=== PATIENT | male | born 1955 | race Caucasian/White ===

== ENCOUNTER 2021-09-09 09:15 | Outpatient (REF) | payer OTHER, SELFPAY ==
--- NOTE | 2021-09-09 14:45 | MHC.AU.ANR ---
Adult Audiological Evaluation Date of Visit: 09/09/21 Reason for Appointment: Audiological evaluation due to concern for decreased hearing. Patient feels his hearing has been gradually getting worse. He notes that he often has to ask for repetition and his family notes that he doesn't hear well. 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 He notes that only in recent years has hearing protection been required on the job and for a long time he didn't use any hearing protection. He notes that he has had constant tinnitus for many years and is able to ignore it. 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, 40 years History: History: Yes Branch: [employer] Years in : 4-8 Years Medical History: Medical History: Diabetes, Tobacco Use Allergies: Penicillin Medication List: Metformin 500 mg 2x daily Otoscopy: Right Ear: Unremarkable Left Ear: Unremarkable Tympanometry: Tympanometry performed due to: To assess integrity of the middle ear system Right Ear: Hypercompliant Middle Ear System (Type Ad) Left Ear: Hypercompliant Middle Ear System (Type Ad) Hearing Evaluation: Transducer(s) Used: Insert Earphones, Bone Conduction Method: Conventional Audiometry Stimuli Used: Pure Tones Right Ear: Description of Hearing: Normal hearing from 250-1000 Hz, sloping to a mild to moderately-severe sensorineural hearing loss from 4776-8699 Hz. Left Ear: Description of Hearing: Normal hearing from 250-1000 Hz, sloping to a mild to moderately-severe sensorineural hearing loss from 8354-0539 Hz. Speech Recognition Threshold (SRT): Method Used: Monitored Live Voice Stimuli Used: Spondee Words Right Ear: 20 dBHL Left Ear: 20 dBHL Word Discrimination: Method: Recorded Lists Word Lists Used: NU-6 Right Ear: 96% at 65 dBHL Left Ear: 96% at 65 dBHL QuickSIN: 4 dB SNR loss when presented binaurally at 65 dBHL, indication mild hgpjev-tk-itvey understanding difficulties. Recommendations: Audiological re-evaluation in one year. Trial with amplification is recommended. Medical clearance from a physician is required before fitting. Hearing protection should be used when around loud noise. Hearing aid(s) will be ordered after approval is received. Based on type and degree of hearing loss, as well as patient's shared concerns, binaural amplification is recommended to help facilitate improved communication. Discussed options. He is interested in trying rechargeable hhavzlkz-gw-mjd-canal hearing aids. Diagnosis: Primary Diagnosis: H90.3 Bilateral Sensorineural Hearing Loss Secondary Diagnosis: H93.13 Tinnitus, Bilateral Services Performed: Services Performed: Comprehensive Audiological Evaluation (CPT 93677) Tympanometry (CPT 69997) Signature: Provider: Campbell Del Cid, CCC-A
--- NOTE | 2021-09-09 14:46 | MHC.AU.HAS ---
Hearing Aid Evaluation Date of Visit: 09/09/21 Historical Information: Description of Hearing: Normal hearing through 1000 Hz sloping to a mild to moderately-severe sensorineural hearing loss from 8311-1205 Hz bilaterally. Current personal amplification information, if applicable: None Summary: Based on the type and degree of Mr. Roberts's hearing loss and his shared listening needs, binaural amplification is recommended to help facilitate improved communication. Discussed hearing aid styles and technologies. Mr. Roberts is interesting in trying rechargeable BARI style hearing aids. Hearing Aid Prescription: Based on the individual?s shared listening needs, communication environments, dexterity, desire for connectivity, and personal preferences, the following prescription for amplification has been made: Right ear: Manager Diversity: Phonak Model: Audeo P70-R Battery Size: Rechargeable Color: P1 Tube Trailer Filler: Size 1 M Left ear: Left ear prescription to be same as Right Hearing Aid above: Manager Diversity: Phonak Model: Audeo P70-R Battery Size: Rechargeable Color: P1 Tube Trailer Filler: Size 1 M Plan of Care: Medical Clearance to be requested from PCP/ENT. Hearing Instrument Fitting to be scheduled when materials arrive. Hearing aids will be ordered once MD clearance is received. Primary Diagnosis: H90.3 Bilateral Sensorineural Hearing Loss Secondary Diagnosis: H93.13 Tinnitus, Bilateral Signature: Provider: Campbell Del Cid, RADHA-A
--- NOTE | 2021-09-09 14:47 | MHC.AU.MED ---
Medical Clearance for Hearing Instrumentation Date: 09/09/21 Patient Name: Siddharth Roberts Date of : 1955 Referring Provider: DANIELLE Jacobo; Young Ruiz MD We have seen your patient on 09/09/21 and have determined that they are a candidate for amplification (See accompanying report). Specifically, they would benefit from: Hearing aid use in both ears There is a statute that addresses Medical Evaluation Requirements prior to fitting a patient with a hearing aid. According to [place] statute 265 CMR:6.03(1), (a) General. Except as provided in 265 CMR 6.03(1)(b), a generator operator shall not sell a hearing aid unless the prospective user has presented to the generator operator a written statement signed by a licensed physician that states that the patient's hearing loss has been medically evaluated and the patient may be considered a candidate for a hearing aid. The medical evaluation must have taken place within the preceding six months. Please note: Due to the [place] Statute referenced above, we cannot accept a signature other than that of a licensed physician. [employer] and PA signatures cannot be accepted. I am in agreement with the above recommendation. There is no medical contraindication for hearing instrumentation. Physician Signature Date Physician Name (Printed)
== END 2021-09-09 09:16 | disposition home or self-care (01) ==
LOC: HO.SH 09:15
PROVIDERS: Visit Provider Physician Assistant Medical
DX: Z01.118 Encounter for examination of ears and hearing with other abnormal findings (principal); Z46.1 Encounter for fitting and adjustment of hearing aid; H90.3 Sensorineural hearing loss, bilateral; H93.13 Tinnitus, bilateral
CPT/HCPCS: 92557; 92567; 92591

== ENCOUNTER 2021-12-23 13:46 | Outpatient (REF) | payer OTHER, SELFPAY | END 2021-12-23 13:47 | disposition home or self-care (01) | LOC: HO.HAP 13:46 | PROVIDERS: Visit Provider Physician Assistant Medical | DX: Z46.1 Encounter for fitting and adjustment of hearing aid (principal); H90.3 Sensorineural hearing loss, bilateral; H93.13 Tinnitus, bilateral | CPT/HCPCS: V5011; V5020; V5160; V5261 ==

== ENCOUNTER 2022-01-06 11:20 | Outpatient (REF) | payer OTHER, SELFPAY | END 2022-01-06 11:21 | disposition home or self-care (01) | LOC: HO.HAP 11:20 | PROVIDERS: Visit Provider Physician Assistant Medical | DX: Z13.89 Encounter for screening for other disorder (principal) ==

== ENCOUNTER 2025-04-07 13:29 | Outpatient (AMB) | payer MEDICARE, MEDICAID, SELFPAY ==
--- NOTE | 2025-04-07 14:48 | AM.OFFWIN_ITS ---
Intake Vital Signs 04/07/25 14:49 Height 6 ft 3 in Weight 225 lb BMI 28.1 BP 132/70 Blood Pressure Location Lt brachial Position Sitting Pulse 68 Pulse Source Pulse Oximeter Temp 98.0 F Temp Source Oral Pulse Oximetry (%) 94 Oxygen Delivery Method Room Air Intake Visit Reasons: EP-lt ear growth Intake Note: pt presents with pain to left lower earlobe, states there's a painful nodule Allergies Penicillins Allergy (Unknown, Verified 04/07/25 14:51) Unknown Do you need a note to return to daycare/school/sports/work: No HPI HPI Comments History of Present Illness Details History of Present Illness - The patient is a 70-year-old male pres enting with a lump on the left earlobe. - The lump was noticed a few weeks ago a nd has been increasing in size. - The lump has become tender, causing di scomfort, especially when trying to sleep. - No fever or purulent discharge was rep orted prior to examination. - The patient experienced itchiness in t he ear. - He denies fever, chills, discharge or bleeding. Physical Exam General: Cooperative, healthy appearing, comfortable, no acute distress and well developed Orientation: Patient oriented x3 Limitations: No limitations Head: Normal to inspection Ears: Tenderness and lump noted on the left earlobe. No tragus tenderness noted. Auditory canal is clear, TM is normal. Neck: Normal visual inspection and Yes full ROM. No lymphadenopathy noted. Respiratory: Normal respiratory effort and able to speak in complete sentences. Clear to auscultation bilaterally Cardiovascular: Regular rate and rhythm. Normal S1 and S2 Skin: No rashes or lesions noted Patient was informed and verbally consented to the use of an ambient scribe for clinic note documentation during this visit. Review of Systems Const All systems reviewed & are unremarkable except as noted in HPI and below Physical Exam Vital Signs: Last Vital Signs Temp 98.0 F 04/07/25 14:49 Pulse 68 04/07/25 14:49 BP 132/70 04/07/25 14:49 Pulse Ox 94 04/07/25 14:49 Oxygen Delivery Method Room Air 04/07/25 14:49 BMI result Body Mass Index 28.1 Office Procedures I&D Drain Details: Cleaned the left earlobe with alcohol. Used an 18 gauge needle to make a puncture in the abscess. Purulent discharge and blood expressed from the area. Cleaned with normal saline and a bandaid used to cover the area. Procedure was well tolerated. No complications noted. 65493-Myeknbfe of Skin Abscess, simple All charges added?: Procedure code (CPT) selection complete Assessment & Plan Assessment & Plan (1) Abscess of earlobe: Code(s): H60.00 - Abscess of external ear, unspecified ear Qualifiers: Laterality: left Qualified Code(s): H60.02 - Abscess of left external ear Plan Most likely an abscess vs cyst Plan - warm compresses to the area - tylenol or motrin as needed - doxycycline 100 mg BID for 7 days - follow up with PCP Orders: Orders AMB Incision & Drainage Today H60.00 - Abscess of external ear, unspecified ear Medications: New doxycycline hyclate 100 mg PO BID 14 tabs 0RF Coding Level of Care Code Est Pt Level 3 (01588) Diagnoses Abscess of left earlobe H60.02 Laterality: left CPT Codes I&D Drain - Drain 1: 33531-Whbyslnw of Skin Abscess, simple ([id number])
--- OUTSIDE RECORDS SUMMARY | 2025-04-07 14:48 | XMS_ITS ---
Author Name [facility] Organization Unknown Care Team Organization Name Specialty Phone Email Start Date End Da lawrence [facility] 06/21/2022
--- OUTSIDE RECORDS SUMMARY | 2025-04-07 14:48 | XMS_ITS | Clinical Summary ---
Author Organization [facility] [address] [place] [address] [address] [place] [address] Phone Care Team Providers Care Registered Pharmacist Name Role Phone Matti Cloud Primary Care Provider [phone] Allergies Active Allergy Reactions Criticality Noted Date Comments Penicillins Low 09/03/2014 Medications blood-glucose meter (FREESTYLE LITE METER MISC) Use to check blood sugar once daily 1 Active blood sugar diagnostic (FreeStyle Lite Strips) test strip Use to check blood sugar once daily 100 strip 5 5 Active freestyle (FreeStyle Lancets) 28 gauge lancets Use to check blood sugar once daily 100 each 5 5 Active atorvastatin (LIPITOR) 20 mg tablet TAKE 1 TABLET BY MOUTH EVERY DAY 90 tablet 3 5 Active metFORMIN (GLUCOPHAGE) 500 mg tablet Take 2 tablets (1,000 mg total) by mouth 2 (two) times a day with meals. 360 tablet 3 5 Active metFORMIN (GLUCOPHAGE) 500 mg tablet TAKE 1 TABLET BY MOUTH TWICE A DAY WITH FOOD 180 tablet 3 5 03/16/20 25 Discontinu ed(Reorder ) Active Problems Problem Noted Date Diagnosed Date Open wnd of finger 06/14/2022 Microalbuminuria 01/07/2021 Type 2 diabetes mellitus wit hout complication, without long-term current use of insulin ([facility] V24, CMS/HCC V28) 12/18/2020 Episode of recurrent major d epressive disorder [place] [place] 01/02/2020 Mixed hyperlipidemia 03/10/2019 Benign prostatic hyperplasia with weak urinary s tream 11/01/2017 Right inguinal hernia 09/07/2017 Hyperopia with astigmatism and presbyopia 2014 Nuclear sclerosis 09/03/2014 Encounters Date Type Department Care Team Description 03/12/2025 12:45 PM EDT Office Visit Adult Medicine [address] [address] Matti Cloud PA Type 2 diabetes mellitus without complication, without long-term current use of insulin ([facility] V24, [facility] V28[place] (Primary Dx); Microalbuminuria; Mixed hyperlipidemia; Episode of recurrent major depressive disorder, unspecified depression episode severity ([facility] V24); Benign prostatic hyperplasia with weak urinary stream; Need for tetanus, diphtheria, and acellular pertussis (Tdap) vaccine from Last 3 Months Immunizations Name Administration Dates Next Due Influenza Quadravalent, MDCK , 0.5ml, preservative free (Flucelvax) 6mo and older 08/20/2021 Influenza trivalent, 0.5mL (Fluad) 65yo and olde r 06/23/2023 Influenza trivalent, 0.5mL, preservative free (Fluarix; FluLaval; Fluzone) ages 6mo and older (Afluria) 3 years and older 05/29/2020,06/09/2015 Influenza, Unspecified 05/31/2020 SprinkleBit/bContext SARS-CoV-2 COVID -19, vector-nr, rS-Ad26, preservative free 10/14/2020 Pneumococcal conjugate 20 va lent (Prevnar 20, PCV 20) 2mo and older 12/20/2022 Tdap Tetanus diptheria acell ular pertussis (Boostrix; Adacel) 7yo and older 03/12/2025,02/23/2015 Zoster recombinant (Shingrix) 19yo and older 02/2020,06/19/2020 Surgical History Surgery Date Site/Laterality Comments ABDOMINAL SURGERY 1995 PROCEDURE: HISTORICAL ABDOMINAL SURGERY; COMMENT: colectomy for diverticulitis HERNIA REPAIR 1967 Right PROCEDURE: HISTORICAL HERNIA REPAIR/ING HERNIA REPAIR 11/22/2017 Right PROCEDURE: LAPAROSCOPY, INGUINAL HERNIA REPAIR; COMMENT: robotic assisted Medical History Medical History Date Comments Nuclear sclerosis 09/03/2014 DX:Nuclear scl erosis Hyperopia with astigmatism a nd presbyopia 09/03/2014 DX:Hyperopia with astigmatis m and presbyopia Tobacco abuse 08/19/2017 DX:Tobacco abuse Right inguinal hernia 09/07/2017 DX:Right i nguinal hernia S/P laparoscopic hernia repair 11/22/2017 D X:S/P laparoscopic hernia repair; COMMENT: robotic assist with lysis of adhesions Family History Medical History Relation Name Comments Other: healthy Brother 1 Other: healthy Brother 2 Other: healthy Brother 3 Dementia Father Diabetes Father Parkinson's Disease Father Hypertension Mother Other: vision problems Mother Glaucoma Other Blindness Neg Hx Cataracts Neg Hx Macular degeneration Neg Hx Strabismus Neg Hx Relation Name Status Comments Brother 1 Brother 2 Brother 3 Father DM, parkinson's Mother healthy Other Social History Tobacco Use Types Packs/Day Years Used Date Smoking Tobacco: Every Day Cigarettes Smokeless Tobacco: Never Tobacco Cessation:Ready to Q uit: Not Asked; Counseling Given: Not Answered Alcohol Use Standard Drinks/Week Comments Yes 0 (1 standard drink = 0.6 oz pur e alcohol) Housing Instability Answer Date Recorde d Are you worried that in the next 2 months you may not have stable housing? No 03/12/2025 Food Access & Nutrition Answer Date Rec orded Do you have access to a vari ety of food including fruits and vegetables? Yes 03/12/2025 Access to Healthcare Answer Date Record ed Within the last 3 months, ho w many times did you visit the emergency department for your medical care? 0 03/12/2025 Health Literacy Answer Date Recorded How often do you need to hav e someone help you when you read instructions, pamphlets, or other written material from your doctor or pharmacy? Never 03/12/2025 Caregiver: How often do you need to have someone help you when you read instructions, pamphlets, or other written material from your doctor or pharmacy? Not on file 03/12/2025 Financial Risk Answer Date Recorded How hard is it for you to pa y for the very basics like food, housing, medical care, and air conditioning / heating? Not very hard 03/12/2025 Transportation Answer Date Recorded Has the lack of transportati on kept you from meetings, work, or from getting things needed for daily living? No Has the lack of transportati on kept you from medical appointments or from getting medications? No 03/12/2025 Social Isolation Answer Date Recorded How often do you feel lonely or isolated from th ose around you? Rarely 03/12/2025 Food Risk Answer Date Recorded Within the past 12 months we worried whether our food would run out before we got money to buy more. Sometimes true 025 Within the past 12 months th e food we bought just didn't last and we didn't have money to get more. Never true 03/12/2025 Dependent Care Answer Date Recorded Do you need help finding or paying for care for your loved ones. For example, children's ministries director or elderly care for an older adult? No 03/12/2025 Education Answer Date Recorded Do you think completing more education or training, like finishing a GED, going to college, or learning a trade, would be helpful for you? No 03/12/2025 Employment and Income Answer Date Recor ded During the last four weeks, have you been actively looking for work? No 03/12/2025 Living Situation Answer Date Recorded What is your living situation? 0 03/12/2025 Sex and Gender Information Value Date Recorded Sex Assigned at Not on file Legal Sex Male 2:19 PM EST Gender Identity Not on file Sexual Orientation Not on file Obstetrics History Last Filed Vital Signs Vital Sign Reading Time Taken Comments Blood Pressure 111/77 03/12/2025 12:13 PM EDT Pulse 103 03/12/2025 12:13 PM EDT Temperature 35.6 C (96 F) 03/12/2025 12:13 PM EDT Respiratory Rate 16 03/12/2025 12:13 PM EDT Oxygen Saturation 96% 03/12/2025 12:13 PM EDT Inhaled Oxygen Concentration - - Weight 99.8 kg (220 lb) 03/12/2025 12:13 PM EDT Height 190.5 cm (6' 3 ) 03/12/2025 12:13 PM EDT Body Mass Index 27.5 03/12/2025 12:13 PM EDT Plan of Treatment Upcoming Encounters Date Type Department Care Team (Late st Contact Info) Description 07/21/2025 11:00 AM EST Office Visit Adult Medicine [facility] [address] [place] [address] Matti Cloud PA [address] [place] [address] Health Maintenance Due Date Last Done Comments RSV Immunization Adult Patients (1 - Risk 60-74 years 1-dose series) 2017 Zoster Vaccines (2 of 2) 08/15/2020 06/20/2020, 01/2020 COVID-19 Vaccine ( season) 2024 06/30/2022, 11/09/2020, 10/14/2020 Medicare Annual Wellness Visit 01/16/2025 01/17/2024 Influenza Vaccine (#1) 2025 , 08/20/2021, 05/31/2020, Additional history exists Diabetes: Annual Foot Exam 09/03/2025 09/03/2024, Lung Cancer Screening (Low Dose CT) 09/03/2025 Postponed from 07/23/2022 (Patient Refused) Diabetes: Blood Sugar Control Test (HGBA1C) 09/12/2025 03/12/2025, 09/03/2024, 01/17/2024, Additional history exists Diabetes: Annual Retina Eye Exam 02/25/2026 02/25/2025, 06/20/2023 Diabetes: Annual Urine Albumin-Creatinine Ratio (uACR) 03/12/2026 03/12/2025, 01/17/2024 Diabetes: Annual GFR (Glomerular Filtration Rate) 03/12/2026 03/12/2025, 09/03/2024, 01/17/2024, Additional history exists Falls Risk Assessment 03/12/2026 03/12/2025, 024 Social Influencers of Health Screening 03/12/2026 03/12/2025 Colorectal Cancer Screening: Colonoscopy 01/05/2028 01/04/2018 Cholesterol Screening (Lipid Panel) 03/12/2030 03/12/2025, 09/03/2024, 01/17/2024, Additional history exists DTaP,Tdap,and Td Vaccines (3 - Td or Tdap) 03/12/2035 03/12/2025, 02/23/2015 Hepatitis C Screening Completed 03/05/2019 Abdominal Aortic Aneurysm (AAA) Screen Completed 06/29/2022, 06/29/2022 Pneumococcal Vaccine: 50+ Years Completed 12/20/2022 Depression Screening Completed 03/12/2025, 01/17/20 24 HIB Vaccines Aged Out No longer eligi ble based on patient's age to complete this topic HPV Vaccines Aged Out No longer eligi ble based on patient's age to complete this topic Hepatitis A Vaccines Aged Out No long er eligible based on patient's age to complete this topic Hepatitis B Vaccines Aged Out No long er eligible based on patient's age to complete this topic IPV Vaccines Aged Out No longer eligi ble based on patient's age to complete this topic MMR Vaccines Aged Out No longer eligi ble based on patient's age to complete this topic Meningococcal ACWY Vaccine Aged Out N o longer eligible based on patient's age to complete this topic Meningococcal B Vaccine Aged Out No l onger eligible based on patient's age to complete this topic RSV Immunization Patients Under 20 months Aged Out No longer eligible based on patient's age to complete this topic Varicella Vaccines Aged Out No longer eligible based on patient's age to complete this topic Procedures Procedure Name Priority Date/Time Associated Diagnosis Comments LIPID PANEL WITH REFLEX TO DIRECT LDL Routine 03/12/2025 12:39 PM EDT Type 2 diabetes mellitus without complication, without long-term current use of insulin ([facility] V24, [facility] V28) Microalbuminuria Mixed hyperlipidemia Episode of recurrent major depressive disorder, unspecified depression episode severity ([facility] V24) Benign prostatic hyperplasia with weak urinary stream Need for tetanus, diphtheria, and acellular pertussis (Tdap) vaccine MICROALBUMIN CREATININE URINE RATIO Routine 03/12/2025 12:39 PM EDT Type 2 diabetes mellitus without complication, without long-term current use of insulin ([facility] V24, [facility] V28) Microalbuminuria Mixed hyperlipidemia Episode of recurrent major depressive disorder, unspecified depression episode severity ([facility] V24) Benign prostatic hyperplasia with weak urinary stream Need for tetanus, diphtheria, and acellular pertussis (Tdap) vaccine COMPREHENSIVE METABOLIC PANEL Routine 03/12/2025 12:39 PM EDT Type 2 diabetes mellitus without complication, without long-term current use of insulin ([facility] V24, [facility] V28) Microalbuminuria Mixed hyperlipidemia Episode of recurrent major depressive disorder, unspecified depression episode severity ([facility] V24) Benign prostatic hyperplasia with weak urinary stream Need for tetanus, diphtheria, and acellular pertussis (Tdap) vaccine HEMOGLOBIN A1C Routine 03/12/2025 12:39 PM EDT Type 2 diabetes mellitus without complication, without long-term current use of insulin ([facility] V24, CMS/HCC V28) Microalbuminuria Mixed hyperlipidemia Episode of recurrent major depressive disorder, unspecified depression episode severity ([facility] V24) Benign prostatic hyperplasia with weak urinary stream Need for tetanus, diphtheria, and acellular pertussis (Tdap) vaccine DEPRESSION SCREENING Routine 01/17/2024 FALLS RISK ASSESSMENT Routine 01/17/2024 DIABETES FOOT EXAM Routine 06/23/2023 DIABETES EYE EXAM Routine 06/20/2023 US ABDOMINAL AORTA REAL TIME SCREEN STUDY AAA Routine 06/29/2022 9:48 AM EST Type 2 diabetes mellitus without complications ([facility] V24, [facility] V28) Tobacco use Mixed hyperlipidemia Benign prostatic hyperplasia with lower urinary tract symptoms Poor urinary stream Proteinuria, unspecified HEPATITIS C SCREENING Routine 03/05/2019 COLONOSCOPY Routine 01/04/2018 from Last 3 Months or Most Recently Relevant to Health Maintenance Results * (ABNORMAL) Lipid panel with reflex to direct LDL (03/12/2025 12:39 PM EDT) Cholesterol 157 0 - 200 mg/dL LAB CHEMISTRY METHOD 03/12/2025 4:32 PM EDT [facility] Triglycerides 192(H) 0 - 150 mg/dL LAB CHEMISTRY METHOD 03/12/2025 4:32 PM EDT [facility] HDL 31(L) >=40 mg/dL LAB CHEMISTRY METHOD 03/12/2025 4:32 PM EDT [facility] LDL Calculated 88 0 - 100 mg/dL LAB CHEMISTRY METHOD 03/12/2025 4:32 PM EDT [facility] VLDL Cholesterol Rivas 38.4 mg/dL LAB CHEMISTRY METHOD 03/12/2025 4:32 PM EDT [facility] Non HDL Chol. (LDL+VLDL) 126 <145 mg/dL LAB CHEMISTRY METHOD 03/12/2025 4:32 PM EDT [facility] Chol/HDL Ratio 5.1(H) 0.0 - 4.4 LAB CHEMISTRY METHOD 03/12/2025 4:32 PM EDT [facility] Blood Venous blood specimen / Unknown Venipuncture / Unknown 03/12/2025 12:39 PM EDT 03/12/2025 12:39 PM EDT Matti SANTOS LAB BLOOD ORDERABLES Xuan jerez Result Performing Organization Address [facility]/State/ZIP Co de Phone Number [facility] [address] [place] [address], * (ABNORMAL) Microalbumin creatinine urine ratio (03/12/2025 12:39 PM EDT) Creatinine, Urine 264.0 mg/dL LAB CHEMISTRY METHOD 03/12/2025 4:12 PM EDT [facility] Microalb, Ur 278.0(H) 0.0 - 29.0 mg/L LAB CHEMISTRY METHOD 03/12/2025 4:12 PM EDT [facility] Microalb/Crea t Ratio 105(H) <30 mg/g creat LAB CHEMISTRY METHOD 03/12/2025 4:12 PM EDT [facility] Urine Urine specimen obtained by clean catch procedure / Unknown Non-blood Collection / Unknown 03/12/2025 12:39 PM EDT 03/12/2025 12:39 PM EDT Matti SANTOS LAB URINE ORDERABLES Xuan l Result [facility] [address] [place] [address], [place] [phone] * (ABNORMAL) Hemoglobin A1c (03/12/2025 12:39 PM EDT) Pathologist [facility] Hemoglobin A1C 9.3(H) <6.5 % LAB CHEMISTRY METHOD 03/16/2025 12:47 PM EDT [facility] Mean Bld Glu Estim. 220 mg/dL LAB CHEMISTRY METHOD 03/16/2025 12:47 PM EDT [facility] Blood Venous blood specimen / Unknown Venipuncture / Unknown 03/12/2025 12:39 PM EDT 03/12/2025 12:39 PM EDT Narrative [facility] - 03/16/2025 12:47 PM EDT Testing performed at [address] [address] Matti SANTOS LAB BLOOD ORDERABLES Xuan l Result [facility] [address] [place] [address], [place] [phone] * (ABNORMAL) Comprehensive metabolic panel (03/12/2025 12:39 PM EDT) Pathologist [facility] Sodium 137 133 - 145 mmol/L LAB CHEMISTRY METHOD 03/12/2025 4:38 PM EDT [facility] Potassium 4.3 3.5 - 5.5 mmol/L LAB CHEMISTRY METHOD 03/12/2025 4:38 PM EDT [facility] Chloride 106 96 - 110 mmol/L LAB CHEMISTRY METHOD 03/12/2025 4:38 PM [facility] CO2 24 21 - 32 mmol/L LAB CHEMISTRY METHOD 03/12/2025 4:38 PM [facility] Anion Gap 7 3 - 11 LAB CHEMISTRY METHOD 03/12/2025 4:38 PM [facility] Glucose 143(H) 70 - 100 mg/dL LAB CHEMISTRY METHOD 03/12/2025 4:38 PM [facility] BUN 21 5 - 25 mg/dL LAB CHEMISTRY METHOD 03/12/2025 4:38 PM [facility] Creatinine 0.97 0.70 - 1.30 mg/dL LAB CHEMISTRY METHOD 03/12/2025 4:38 PM [facility] eGFR 85 >=60 mL/min/1. 73m2 LAB CHEMISTRY METHOD 03/12/2025 4:38 PM [facility] Comment:Calculation based on the Chronic Kidney Disease Epidemiology Collaboration (CKD-EPI) equation refit without adjustment for race. BUN/Creatinine Ratio 21.6 LAB CHEMISTRY METHOD 03/12/2025 4:38 PM [facility] Calcium 9.4 8.5 - 10.5 mg/dL LAB CHEMISTRY METHOD 03/12/2025 4:38 PM [facility] AST (SGOT) 37 10 - 42 unit/L LAB CHEMISTRY METHOD 03/12/2025 4:38 PM [facility] ALT (SGPT) 67(H) 10 - 60 unit/L LAB CHEMISTRY METHOD 03/12/2025 4:38 PM [facility] Alkaline Phosphatase 81 42 - 121 unit/L LAB CHEMISTRY METHOD 03/12/2025 4:38 PM [facility] Total Protein 7.6 6.0 - 8.0 g/dL LAB CHEMISTRY METHOD 03/12/2025 4:38 PM [facility] Albumin 4.2 3.2 - 5.0 g/dL LAB CHEMISTRY METHOD 03/12/2025 4:38 PM EDT [facility] Total Bilirubin 0.9 0.0 - 1.4 mg/dL LAB CHEMISTRY METHOD 03/12/2025 4:38 PM EDT [facility] Blood Venous blood specimen / Unknown Venipuncture / Unknown 03/12/2025 12:39 PM EDT 03/12/2025 12:39 PM EDT Matti SANTOS LAB BLOOD ORDERABLES Xuan l Result [facility]) [facility] [address] [place] [address], [place] [phone] * Falls Risk Assessment (01/17/2024) [facility] Falls Risk Assessment Abstracted [facility] Provider HEALTH MAINTENANCE Final Result * Depression Screening (01/17/2024) [facility] Depression Screening Abstracted [facility] Provider HEALTH MAINTENANCE Final Result * Diabetes Foot Exam (06/23/2023) [facility] Diabetes: Annual Foot Exam Abstracted [facility] Provider HEALTH MAINTENANCE Final Result * Diabetes Eye Exam (06/20/2023) [facility] Diabetes: Annual Retina Eye Exam Abstracted [facility] Provider HEALTH MAINTENANCE Final Result * US ABDOMINAL AORTA REAL TIME SCREEN STUDY AAA (06/29/2022 9:48 AM EST) Anatomical Region Laterality Modality Ultrasound 06/21/2022 10:0 3 AM EST Narrative 06/29/2022 9:57 AM EST EXAM: Abdominal aorta ultrasound, AAA screening HISTORY: AAA screening. History of tobacco use. COMPARISON: None FINDINGS: No evidence of an abdominal aortic aneurysm. Proximal aorta measures 2.1 cm in maximal diameter. Mid aorta measures 1.8 cm. Distal aorta measures 1.1 cm. Proximal right common iliac artery measures 0.9 cm. Proximal left common iliac artery measures 1.0 cm. IMPRESSION: IMPRESSION: No evidence of an abdominal aortic aneurysm. POS - [id number] Procedure Note Elenita Leung MD - 09/19/2023 EXAM: Abdominal aorta ultrasound, AAA screening HISTORY: AAA screening. History of tobacco use. COMPARISON: None FINDINGS: No evidence of an abdominal aortic aneurysm. Proximal aorta measures 2.1cm in maximal diameter. Mid aorta measures 1.8 cm. Distal aorta measures 1.1 cm.Proximal right common iliac artery measures 0.9 cm. Proximal left common iliac artery measures1.0 cm. IMPRESSION: IMPRESSION: No evidence of an abdominal aortic aneurysm. POS - [id number] Matti SANTOS IMG PROCEDURES Final R esult * Hepatitis C Screening (03/05/2019) Hepatitis C Screening Abstracted Historical Provider HEALTH MAINTENANCE Final Result * Colonoscopy (01/04/2018) Colonoscopy No Interpretation , Abstracted Anatomical Region Laterality Modality Other Historical Provider HEALTH MAINTENANCE Final Result from Last 3 Months or Most Recently Relevant to Health Maintenance Insurance MEDICARE MEDICAID - [place] Care Teams Registered Pharmacist Relationship Specialty Start Date End Date Matti Cloud PA [address] [place] [phone] PCP - General Internal Medicine 12/09/20
[2025-04-07 14:49] VITALS: BP 132/70; PULSE 68; TEMP 36.7; O2SAT 94; BMI 28.1
== END 2025-04-07 15:26 | disposition home or self-care (01) ==
PROVIDERS: Visit Provider Physician Assistant Medical
DX: H60.02 Abscess of left external ear (principal)

== ENCOUNTER → 2025-04-07 13:29 | Outpatient (BNVA) | payer MEDICARE, MEDICAID, SELFPAY | PROVIDERS: Visit Provider Physician Assistant Medical | DX: H60.02 Abscess of left external ear (principal) | CPT/HCPCS: 69000; 99212 ==